=== PATIENT | female | born 1995 | race African-American/Black ===

== ENCOUNTER 2017-08-04 08:11 | Emergency (ER) | payer SELFPAY ==
[2017-08-04] MEDS ORDERED: predniSONE 20 MG TAB ONE (09:18)
== END 2017-08-04 10:25 | disposition home or self-care (01) ==
LOC: ERS 08:11
DX: J45.901 Unspecified asthma with (acute) exacerbation (principal); Z79.899 Other long term (current) drug therapy
CPT/HCPCS: 94640; J7506; J7620

== ENCOUNTER 2018-11-04 15:27 | Emergency (ER) | payer SELFPAY ==
[2018-11-04] MEDS ORDERED: Dexamethasone 4 mg/ml Vial ONE (15:57)
[2018-11-04] MEDS ORDERED: Famotidine/PF 20 mg/2ml Vial ONE (15:57)
[2018-11-04] MEDS ORDERED: EPINEPHrine 1 MG/ML AMP ONE (15:57)
[2018-11-04] MEDS ORDERED: diphenhydrAMINE 50 MG/ML VIAL ONE (15:58)
== END 2018-11-04 17:49 | disposition home or self-care (01) ==
LOC: ERS 15:27
DX: T78.40XA Allergy, unspecified, initial encounter (principal); J45.909 Unspecified asthma, uncomplicated; Z79.51 Long term (current) use of inhaled steroids
CPT/HCPCS: 96361; 96372; 96374; 96375; J0171; J1100; J1200; S0028

== ENCOUNTER 2019-01-02 22:48 | Emergency (ER) | payer SELFPAY ==
[2019-01-03 00:28] LABS: #Basophils 0.1 thou/uL (0.0-0.2); #Eosinphils 0.3 thou/uL (0.0-0.7); #Lymphocytes 2.8 thou/uL (1.20-3.40); #Monocytes 0.9 thou/uL (0.11-0.59); #Neutrophils 4.1 thou/uL (1.40-6.50); %Basophils 0.9 % (0.0-1.0); %Eosinophils 4.1 % (0.0-10.0); %Monocytes 11.1 % (0.0-10.0); %Neutrophils 49.8 % (42.0-75.0); Hemoglobin 11.8 g/dL (12.0-16.0); Mean Corpuscular HGB CONC 31.9 g/dL (32.0-36.0); Mean Corpuscular Hemoglobin 27.4 pg (27.0-31.0); Mean Platelet Volume 8.7 fL (7.4-10.4); Platelet Count 219 thou/uL (130-400); RBC Distribution Width 12.5 % (11.5-14.5); Red Blood Cell (RBC) Count 4.29 mill/uL (4.20-5.40); White Blood Cell (WBC) Count 8.2 thou/uL (4.8-10.8)
[2019-01-03 00:44] LABS: BHCG - Serum Negative (NEGATIVE); Pregs Control Background? CLEAR/WHITE (CLR/WHITE); Pregs Control Bar Appear? YES (CONTROL BAR)
== END 2019-01-03 00:59 | disposition home or self-care (01) ==
LOC: ERS 22:48
DX: N93.9 Abnormal uterine and vaginal bleeding, unspecified (principal); L03.111 Cellulitis of right axilla; J45.909 Unspecified asthma, uncomplicated; Z79.51 Long term (current) use of inhaled steroids
CPT/HCPCS: 36415; 84703; 85025; 99284

== ENCOUNTER 2019-03-22 03:37 | Emergency (ER) | payer SELFPAY ==
[2019-03-22] MEDS ORDERED: Lidocaine 2% MPF 10 ML AMP (For Epidural Use) ONE (05:11)
== END 2019-03-22 06:12 | disposition home or self-care (01) ==
LOC: ERS 03:37
DX: N75.0 Cyst of Bartholin's gland (principal); J45.909 Unspecified asthma, uncomplicated; Z79.51 Long term (current) use of inhaled steroids
CPT/HCPCS: 56420; J2001

== ENCOUNTER 2019-07-23 10:57 | Emergency (ER) | payer SELFPAY ==
[2019-07-23] MEDS ORDERED: Dexamethasone 10 MG/ML VIAL ONE (12:20)
== END 2019-07-23 13:03 | disposition home or self-care (01) ==
LOC: ERS 10:57
DX: J45.901 Unspecified asthma with (acute) exacerbation (principal); J01.90 Acute sinusitis, unspecified
CPT/HCPCS: 94640; J1100; J7620

== ENCOUNTER 2020-01-06 05:38 | Emergency (ER) | payer SELFPAY | END 2020-01-06 05:58 | disposition home or self-care (01) | LOC: ERS 05:38 | DX: R13.10 Dysphagia, unspecified (principal); J45.909 Unspecified asthma, uncomplicated | CPT/HCPCS: 99281 ==

== ENCOUNTER 2020-10-22 00:37 | Emergency (ER) | payer BC, SELFPAY ==
[2020-10-22] MEDS ORDERED: Lidocaine 1% w/Epinephrine 1:100K 20 ML VIAL ONE (00:52)
[2020-10-22] MEDS ORDERED: Lidocaine 1% (PF) 30 ML VIAL ONE (00:53)
[2020-10-22] MEDS ORDERED: Lidocaine 1% PF 5 ML VIAL ONE ×2 (00:54→01:01)
== END 2020-10-22 01:40 | disposition home or self-care (01) ==
LOC: ERS 00:37
DX: L05.01 Pilonidal cyst with abscess (principal); J45.909 Unspecified asthma, uncomplicated
CPT/HCPCS: 10080; J2001

== ENCOUNTER 2021-03-26 00:27 | Emergency (ER) | payer BC, SELFPAY | END 2021-03-26 03:00 | disposition home or self-care (01) | LOC: ERS 00:27 | DX: L05.01 Pilonidal cyst with abscess (principal) | CPT/HCPCS: 10080 ==